=== PATIENT | male | born 1940 | race Caucasian/White ===

== ENCOUNTER 2022-04-08 09:15 | Inpatient (IN) | payer MEDICARE ==
[2022-04-08 11:44] VITALS: BMI 44.1
[2022-04-08 12:31] LABS: Hemoglobin 13.6 g/dL (13.5-17.5); INR-International Normal Ratio 1.2; Mean Corpuscular HGB CONC 32.5 g/dL (32.0-36.0); Mean Corpuscular Hemoglobin 32.2 pg (27.0-33.0); Mean Corpuscular Volume 98.8 fl (81.2-95.1); Mean Platelet Volume 9.9 fl (7.4-10.4); PTT 28.9 sec (22.0-33.0); Platelet Count 219 10x3/uL (150-450); Prothrombin Time 12.8 sec (9.5-12.1); RBC Distribution Width 13.1 % (11.5-14.5); Red Blood Cell (RBC) Count 4.23 10x6/uL (4.32-5.72)
[2022-04-08 12:45] LABS: Anion Gap 13 mmol/L (10-20); BUN (Urea Nitrogen) 18 mg/dL (8.4-25.7); Calc. Creatinine Clearance 0 mL/min (70-130); Calcium 8.7 mg/dL (7.8-10.44); Carbon Dioxide 29 mmol/L (23-31); Chloride 103 mmol/L (98-107); Glucose 97 mg/dL (83-110); Potassium 4.7 mmol/L (3.5-5.1); Sodium 140 mmol/L (136-145)
[2022-04-13] MEDS ORDERED: Lidocaine 1% MPF 2 ML VIAL ONE (10:12)
[2022-04-13] MEDS ORDERED: Sodium Chloride 0.9% 100 ML ONE (10:13)
[2022-04-13] MEDS ORDERED: CEFAZOLIN 2 GM VIAL ONE (10:13)
[2022-04-13] MEDS ORDERED: HYDROmorphone 0.5 MG/0.5 ML SYRINGE ONE (11:40)
[2022-04-13] MEDS ORDERED: Fentanyl 100 MCG/2 ML VIAL ONE ×2 (11:40→15:45)
[2022-04-13] MEDS ORDERED: Ketamine 50 MG/ML (10ML VIAL) ONE (11:52)
[2022-04-13] MEDS ORDERED: Bupivacaine PF 0.5% 30 ML VIAL ONE (11:53)
[2022-04-13] MEDS ORDERED: Lidocaine 1% w/Epinephrine 1:100K 30 ML VIAL ONE (11:53)
[2022-04-13] MEDS ORDERED: Dexamethasone 20 MG/5 ML VIAL ONE (11:59)
[2022-04-13] MEDS ORDERED: Rocuronium Bromide 10 MG/ML (10ML VIAL) ONE (11:59)
[2022-04-13] MEDS ORDERED: Ondansetron PF 4 MG/2 ML Vial ONE (11:59)
[2022-04-13] MEDS ORDERED: Lidocaine 1% PF 5 ML VIAL ONE (11:59)
[2022-04-13] MEDS ORDERED: Glycopyrrolate 0.2 MG/ML 5 ML SYRINGE ONE (11:59)
[2022-04-13] MEDS ORDERED: PROPOFOL 200 MG/20 ML VIAL ONE (11:59)
[2022-04-13] MEDS ORDERED: Succinylcholine 200 MG/10 ml SYRINGE FS ONE (11:59)
[2022-04-13] MEDS ORDERED: diphenhydrAMINE 50 MG/ML VIAL IVP PRN (13:25)
[2022-04-13] MEDS ORDERED: hydrALAZINE 20 MG/ML VIAL SLOW IVP PRN (13:25)
[2022-04-13] MEDS ORDERED: Zolpidem Tartrate 5 MG TAB PO PRN (13:25)
[2022-04-13] MEDS ORDERED: Morphine 4 MG/ML VIAL SLOW IVP PRN (13:25)
[2022-04-13] MEDS ORDERED: fentaNYL Citrate/PF 100 MCG/2 ML SYRINGE ONE (13:31)
[2022-04-13] MEDS ORDERED: SUGAMMADEX SODIUM 200 MG/2 ML VIAL ONE (13:41)
[2022-04-13] MEDS ORDERED: Ondansetron HCl/PF 4 MG/2 ML Vial IVP PRN (13:57)
[2022-04-13] MEDS ORDERED: Promethazine HCl 25 MG/ML VIAL IM PRN (13:57)
[2022-04-13] MEDS ORDERED: HYDROmorphone 2 MG/ML VIAL SLOW IVP PRN (13:57)
[2022-04-13] MEDS ORDERED: Promethazine HCl 25 MG/ML VIAL IVPB PRN (13:57)
[2022-04-13] MEDS: Heparin 5,000 UNITS/ML VIAL SC SCH ×2 (19:27→21:02)
[2022-04-13] MEDS: Ondansetron PF 4 MG/2 ML Vial IVP PRN (19:50)
[2022-04-13] MEDS: Amlodipine 5 MG TAB PO SCH (19:57)
[2022-04-13] MEDS: Sodium Chloride 0.9% 1,000 ML IV SCH (19:57)
[2022-04-13] MEDS ORDERED: Carvedilol 6.25 MG TAB PO SCH (20:00)
[2022-04-13] MEDS: Escitalopram Oxalate 10 mg Tablet PO SCH (20:06)
[2022-04-13] MEDS ORDERED: Dronedarone HCl 400 MG TAB PO SCH (21:00)
[2022-04-13] MEDS: Docusate 100 MG CAP PO SCH (21:03)
[2022-04-13] MEDS: Carvedilol 6.25 MG TAB PO SCH (22:10)
[2022-04-13] MEDS: HYDROcodone/Acetaminophen 5/325 mg Tablet PO PRN (22:21)
[2022-04-14] MEDS: HYDROcodone/Acetaminophen 5/325 mg Tablet PO PRN ×4 (05:10→21:57)
[2022-04-14] MEDS: Heparin 5,000 UNITS/ML VIAL SC SCH ×3 (05:10→21:57)
[2022-04-14] MEDS: Sodium Chloride 0.9% 1,000 ML IV SCH ×2 (06:30→17:11)
[2022-04-14] MEDS: Ondansetron PF 4 MG/2 ML Vial IVP PRN ×2 (06:34→13:52)
[2022-04-14 06:35] LABS: Anion Gap 12 mmol/L (10-20); BUN (Urea Nitrogen) 19 mg/dL (8.4-25.7); Calc. Creatinine Clearance 63 mL/min (70-130); Calcium 8.5 mg/dL (7.8-10.44); Carbon Dioxide 28 mmol/L (23-31); Chloride 102 mmol/L (98-107); Glucose 127 mg/dL (83-110); Potassium 4.5 mmol/L (3.5-5.1); Sodium 137 mmol/L (136-145)
[2022-04-14] MEDS ORDERED: Dronedarone HCl 400 MG TAB PO SCH ×2 (09:00→15:15)
[2022-04-14] MEDS ORDERED: Escitalopram Oxalate 10 mg Tablet PO SCH (09:00)
[2022-04-14] MEDS: Carvedilol 6.25 MG TAB PO SCH ×2 (09:01→17:11)
[2022-04-14] MEDS: Aspirin 81 mg Enteric Coated Tablet PO SCH (09:01)
[2022-04-14] MEDS: Docusate 100 MG CAP PO SCH ×2 (09:02→21:57)
[2022-04-14] MEDS ORDERED: Tamsulosin HCl 0.4 MG CAP PO SCH (12:15)
[2022-04-14] MEDS: Escitalopram Oxalate 10 mg Tablet PO SCH (21:56)
[2022-04-14] MEDS: Amlodipine 5 MG TAB PO SCH (21:56)
[2022-04-14] MEDS: Atorvastatin Calcium 20 MG TAB PO SCH (21:57)
[2022-04-14] MEDS: Dronedarone HCl 400 MG TAB PO SCH (21:57)
[2022-04-15] MEDS: Sodium Chloride 0.9% 1,000 ML IV SCH ×2 (02:31→04:29)
[2022-04-15] MEDS: Heparin 5,000 UNITS/ML VIAL SC SCH ×2 (06:09→15:01)
[2022-04-15] MEDS: HYDROcodone/Acetaminophen 5/325 mg Tablet PO PRN (06:13)
[2022-04-15] MEDS: Dronedarone HCl 400 MG TAB PO SCH ×2 (09:35→21:46)
[2022-04-15] MEDS: Docusate 100 MG CAP PO SCH ×2 (09:35→21:45)
[2022-04-15] MEDS: Tamsulosin HCl 0.4 MG CAP PO SCH (09:35)
[2022-04-15] MEDS: Aspirin 81 mg Enteric Coated Tablet PO SCH (09:36)
[2022-04-15] MEDS: Carvedilol 6.25 MG TAB PO SCH ×2 (09:36→17:19)
[2022-04-15] MEDS ORDERED: Furosemide 40 MG/4 ML VIAL SLOW IVP SCH (14:30)
[2022-04-15 16:20] LABS: #Eosinphils 0.1 thou/uL (0.0-0.7); #Lymphocytes 0.7 thou/uL (1.20-3.40); #Monocytes 1.3 thou/uL (0.11-0.59); %Basophils 0.2 % (0.0-1.0); %Eosinophils 1.2 % (0.0-10.0); %Lymphocytes 5.9 % (21.0-51.0); %Monocytes 11.5 % (0.0-10.0); %Neutrophils 81.2 % (42.0-75.0); Hemoglobin 13.4 g/dL (14.0-18.0); Mean Corpuscular HGB CONC 31.1 g/dL (32.0-36.0); Mean Corpuscular Hemoglobin 32.7 pg (27.0-31.0); Mean Platelet Volume 7.1 fL (7.4-10.4); Platelet Count 181 thou/uL (130-400); RBC Distribution Width 11.8 % (11.5-14.5); Red Blood Cell (RBC) Count 4.09 mill/uL (4.70-6.10)
[2022-04-15 16:31] LABS: ALT (SGPT) 21 U/L (8-55); AST (SGOT) 23 U/L (5-34); Albumin 3.3 g/dL (3.4-4.8); Alkaline Phosphatase 75 U/L (40-110); Anion Gap 11 mmol/L (10-20); BUN (Urea Nitrogen) 27 mg/dL (8.4-25.7); Bilirubin, Total 0.9 mg/dL (0.2-1.2); Calc. Creatinine Clearance 50 mL/min (70-130); Calcium 8.1 mg/dL (7.8-10.44); Carbon Dioxide 27 mmol/L (23-31); Chloride 96 mmol/L (98-107); Globulin 2.4 g/dL (2.4-3.5); Glucose 106 mg/dL (83-110); Potassium 4.7 mmol/L (3.5-5.1); Protein, Total 5.7 g/dL (5.8-8.1); Sodium 129 mmol/L (136-145)
[2022-04-15] MEDS ORDERED: Furosemide 20 MG/2 ML VIAL SLOW IVP PRN (18:23)
[2022-04-15] MEDS: Escitalopram Oxalate 10 mg Tablet PO SCH (21:44)
[2022-04-15] MEDS: Apixaban 2.5 MG TAB PO SCH (21:45)
[2022-04-15] MEDS: Amlodipine 5 MG TAB PO SCH (21:45)
[2022-04-15] MEDS: Atorvastatin Calcium 20 MG TAB PO SCH (21:48)
[2022-04-16 08:40] LABS: Anion Gap 12 mmol/L (10-20); BUN (Urea Nitrogen) 27 mg/dL (8.4-25.7); Calc. Creatinine Clearance 50 mL/min (70-130); Calcium 8.3 mg/dL (7.8-10.44); Carbon Dioxide 25 mmol/L (23-31); Chloride 97 mmol/L (98-107); Glucose 115 mg/dL (83-110); Potassium 4.5 mmol/L (3.5-5.1); Sodium 129 mmol/L (136-145)
[2022-04-16] MEDS: Aspirin 81 mg Enteric Coated Tablet PO SCH (08:42)
[2022-04-16] MEDS: Apixaban 2.5 MG TAB PO SCH (08:42)
[2022-04-16] MEDS: Tamsulosin HCl 0.4 MG CAP PO SCH (08:42)
[2022-04-16] MEDS: Docusate 100 MG CAP PO SCH (08:42)
[2022-04-16] MEDS: Carvedilol 6.25 MG TAB PO SCH ×2 (08:43→16:44)
[2022-04-16] MEDS: Dronedarone HCl 400 MG TAB PO SCH (08:44)
[2022-04-16] MEDS ORDERED: Polyethylene Glycol 3350 17 GM Packet PO PRN (09:52)
[2022-04-16 13:40] VITALS: TEMP 98.2
[2022-04-16] MEDS: HYDROcodone/Acetaminophen 5/325 mg Tablet PO PRN (16:28)
[2022-04-16 16:44] VITALS: BP 94/56
== END 2022-04-16 17:55 | disposition home or self-care (01) | DRG 656 ==
LOC: EDSTATUS 04-13 09:15 → SURG A 04-13 09:34 → SURG B 04-13 19:01
PROVIDERS: ADMIT Urology; ATTEND Hospitalist
PROC: 0TT00ZZ Resection of Right Kidney, Open Approach (ICD-10-PCS; principal; 2022-04-13)
PROC: 0TB60ZZ Excision of Right Ureter, Open Approach (ICD-10-PCS; 2022-04-13)
DX: C64.1 Malignant neoplasm of right kidney, except renal pelvis (principal); J96.01 Acute respiratory failure with hypoxia; Z68.41 Body mass index [BMI] 40.0-44.9, adult; I13.0 Hypertensive heart and chronic kidney disease with heart failure and stage 1 through stage 4 chronic kidney disease, or unspecified chronic kidney disease; N17.9 Acute kidney failure, unspecified; N18.4 Chronic kidney disease, stage 4 (severe); E66.01 Morbid (severe) obesity due to excess calories; R33.9 Retention of urine, unspecified; E78.00 Pure hypercholesterolemia, unspecified; E04.1 Nontoxic single thyroid nodule; Z96.653 Presence of artificial knee joint, bilateral; I25.10 Atherosclerotic heart disease of native coronary artery without angina pectoris; D63.1 Anemia in chronic kidney disease; E78.5 Hyperlipidemia, unspecified; I50.9 Heart failure, unspecified; I48.91 Unspecified atrial fibrillation; K21.9 Gastro-esophageal reflux disease without esophagitis; F32.A Depression, unspecified; Z82.49 Family history of ischemic heart disease and other diseases of the circulatory system; Z79.82 Long term (current) use of aspirin; Z79.899 Other long term (current) drug therapy; Z88.7 Allergy status to serum and vaccine; Z82.3 Family history of stroke
CPT/HCPCS: 36415; 71045; 80048; 80053; 83880; 85025; 85027; 85610; 85730; 86850; 86900; 86901; 88309; 93970; A4649; C1776; J0690; J1100; J1170; J1644; J1940; J2405; J2704; J3010; J3490; J7050; S0020; U0003; U0005

== ENCOUNTER 2022-04-08 09:42 | Outpatient (CLI) | payer MEDICARE | END 2022-04-08 09:43 | disposition home or self-care (01) | LOC: LABBT 09:42 | PROVIDERS: ATTEND Urology | DX: Z01.812 Encounter for preprocedural laboratory examination (principal); N28.89 Other specified disorders of kidney and ureter | CPT/HCPCS: 80048; 85027; 85610; 85730; 86850; 86900; 86901; U0003; U0005 ==

== ENCOUNTER 2022-04-22 13:07 | Inpatient (IN) | payer MEDICARE ==
[2022-04-22 14:40] LABS: #Eosinphils 0.1 thou/uL (0.0-0.7); #Lymphocytes 0.6 thou/uL (1.20-3.40); #Monocytes 1.3 thou/uL (0.11-0.59); #Neutrophils 13.7 thou/uL (1.40-6.50); %Basophils 0.2 % (0.0-1.0); %Eosinophils 0.6 % (0.0-10.0); %Lymphocytes 3.8 % (21.0-51.0); %Monocytes 8.3 % (0.0-10.0); %Neutrophils 87.1 % (42.0-75.0); Hemoglobin 13.3 g/dL (14.0-18.0); Mean Corpuscular HGB CONC 32.5 g/dL (32.0-36.0); Mean Corpuscular Hemoglobin 33.2 pg (27.0-31.0); Mean Platelet Volume 6.8 fL (7.4-10.4); Platelet Count 221 thou/uL (130-400); RBC Distribution Width 11.6 % (11.5-14.5); Red Blood Cell (RBC) Count 4.01 mill/uL (4.70-6.10); White Blood Cell (WBC) Count 15.7 thou/uL (4.8-10.8)
[2022-04-22 15:13] LABS: ALT (SGPT) 30 U/L (8-55); AST (SGOT) 24 U/L (5-34); Albumin 3.1 g/dL (3.4-4.8); Alkaline Phosphatase 96 U/L (40-110); Anion Gap 13 mmol/L (10-20); BUN (Urea Nitrogen) 21 mg/dL (8.4-25.7); Bilirubin, Total 1.8 mg/dL (0.2-1.2); Calc. Creatinine Clearance 0 mL/min (70-130); Calcium 8.3 mg/dL (7.8-10.44); Carbon Dioxide 28 mmol/L (23-31); Chloride 94 mmol/L (98-107); Globulin 2.6 g/dL (2.4-3.5); Glucose 110 mg/dL (83-110); Lipase 9 U/L (8-78); Potassium 4.2 mmol/L (3.5-5.1); Protein, Total 5.7 g/dL (5.8-8.1); Sodium 131 mmol/L (136-145)
[2022-04-22 17:29] LABS: Bacteria/HPF 2+ HPF (None Seen); Bilirubin Negative (Negative); Blood, Urine 1+ (Negative); Clarity Turbid (Clear); Glucose, Urine (Dipstick) Normal (Negative); Ketone, Urine Negative (Negative); Leukocyte 250 Leu/uL (Negative); Nitrite Negative (Negative); Protein, Urine (Dipstick) 50 mg/dL (Neg-Trace); RBC/HPF 0-3 HPF (0-3); Specific Gravity, Urine 1.015 (1.002-1.036); Squamous Epithelial 0-3 HPF (0-3); WBC/HPF Greater than 50 HPF (0-3); pH, Urine 6.5 (5.0-9.0)
[2022-04-22] MEDS ORDERED: Cefepime 2 GM VIAL ONE (18:14)
[2022-04-22 23:23] VITALS: BMI 42.9
[2022-04-23] MEDS ORDERED: Ondansetron ODT 4 MG TAB PO PRN (00:40)
[2022-04-23] MEDS ORDERED: Acetaminophen 325 MG TAB PO PRN (00:40)
[2022-04-23] MEDS ORDERED: Acetaminophen 650 MG Suppository PR PRN (00:40)
[2022-04-23] MEDS ORDERED: Ondansetron PF 4 MG/2 ML Vial IVP PRN (00:40)
[2022-04-23 02:59] LABS: #Eosinphils 0.4 thou/uL (0.0-0.7); #Lymphocytes 0.8 thou/uL (1.20-3.40); #Monocytes 1.4 thou/uL (0.11-0.59); #Neutrophils 12.4 thou/uL (1.40-6.50); %Basophils 0.2 % (0.0-1.0); %Eosinophils 2.7 % (0.0-10.0); %Lymphocytes 5.5 % (21.0-51.0); %Monocytes 9.5 % (0.0-10.0); Hemoglobin 12.8 g/dL (14.0-18.0); Mean Corpuscular HGB CONC 33.1 g/dL (32.0-36.0); Mean Corpuscular Hemoglobin 33.9 pg (27.0-31.0); Mean Platelet Volume 6.8 fL (7.4-10.4); Platelet Count 219 thou/uL (130-400); RBC Distribution Width 11.7 % (11.5-14.5); Red Blood Cell (RBC) Count 3.79 mill/uL (4.70-6.10); White Blood Cell (WBC) Count 15.1 thou/uL (4.8-10.8)
[2022-04-23 03:19] LABS: Anion Gap 12 mmol/L (10-20); BUN (Urea Nitrogen) 22 mg/dL (8.4-25.7); Calc. Creatinine Clearance 52 mL/min (70-130); Calcium 8.6 mg/dL (7.8-10.44); Carbon Dioxide 27 mmol/L (23-31); Chloride 97 mmol/L (98-107); Glucose 100 mg/dL (83-110); Sodium 132 mmol/L (136-145)
[2022-04-23] MEDS ORDERED: Furosemide 40 MG/4 ML VIAL SLOW IVP SCH (04:00)
[2022-04-23] MEDS: Cefepime 2 GM in Sodium Chloride 0.9% 100 ML IVPB SCH ×2 (05:08→17:26)
[2022-04-23] MEDS: Carvedilol 6.25 MG TAB PO SCH ×2 (08:19→17:43)
[2022-04-23] MEDS: Dronedarone HCl 400 MG TAB PO SCH ×2 (08:19→20:26)
[2022-04-24] MEDS: Cefepime 2 GM in Sodium Chloride 0.9% 100 ML IVPB SCH ×2 (05:14→17:21)
[2022-04-24 06:59] LABS: #Basophils 0.1 thou/uL (0.0-0.2); #Eosinphils 0.7 thou/uL (0.0-0.7); #Lymphocytes 0.7 thou/uL (1.20-3.40); #Neutrophils 7.3 thou/uL (1.40-6.50); %Basophils 0.5 % (0.0-1.0); %Eosinophils 6.7 % (0.0-10.0); %Monocytes 10.4 % (0.0-10.0); %Neutrophils 75.4 % (42.0-75.0); Hemoglobin 12.6 g/dL (14.0-18.0); Mean Corpuscular HGB CONC 32.2 g/dL (32.0-36.0); Mean Platelet Volume 6.9 fL (7.4-10.4); Platelet Count 246 thou/uL (130-400); RBC Distribution Width 11.6 % (11.5-14.5); Red Blood Cell (RBC) Count 3.82 mill/uL (4.70-6.10); White Blood Cell (WBC) Count 9.7 thou/uL (4.8-10.8)
[2022-04-24 07:23] LABS: Anion Gap 13 mmol/L (10-20); BUN (Urea Nitrogen) 25 mg/dL (8.4-25.7); Calc. Creatinine Clearance 51 mL/min (70-130); Calcium 8.3 mg/dL (7.8-10.44); Carbon Dioxide 28 mmol/L (23-31); Chloride 97 mmol/L (98-107); Glucose 96 mg/dL (83-110); Sodium 134 mmol/L (136-145)
[2022-04-24] MEDS: Furosemide 20 MG TAB PO SCH (08:17)
[2022-04-24] MEDS: Dronedarone HCl 400 MG TAB PO SCH ×2 (08:17→20:01)
[2022-04-24] MEDS: Carvedilol 6.25 MG TAB PO SCH ×2 (08:17→17:21)
[2022-04-25] MEDS: Cefepime 2 GM in Sodium Chloride 0.9% 100 ML IVPB SCH (05:21)
[2022-04-25] MEDS: Dronedarone HCl 400 MG TAB PO SCH (09:31)
[2022-04-25] MEDS: Carvedilol 6.25 MG TAB PO SCH (09:31)
[2022-04-25] MEDS: Furosemide 20 MG TAB PO SCH (09:31)
[2022-04-25 12:51] VITALS: BP 101/55; TEMP 98.1
== END 2022-04-25 15:20 | disposition home or self-care (01) | DRG 699 ==
LOC: ERS 13:07 → T4-A 21:24 → OBSVTOIN 04-25 12:53
PROVIDERS: ADMIT Internal Medicine; ATTEND Internal Medicine
DX: N99.89 Other postprocedural complications and disorders of genitourinary system (principal); N30.00 Acute cystitis without hematuria; I50.22 Chronic systolic (congestive) heart failure; I13.0 Hypertensive heart and chronic kidney disease with heart failure and stage 1 through stage 4 chronic kidney disease, or unspecified chronic kidney disease; N17.9 Acute kidney failure, unspecified; E87.1 Hypo-osmolality and hyponatremia; Z68.41 Body mass index [BMI] 40.0-44.9, adult; Y83.6 Removal of other organ (partial) (total) as the cause of abnormal reaction of the patient, or of later complication, without mention of misadventure at the time of the procedure; E78.5 Hyperlipidemia, unspecified; K22.70 Barrett's esophagus without dysplasia; Z96.659 Presence of unspecified artificial knee joint; N18.30 Chronic kidney disease, stage 3 unspecified; E66.01 Morbid (severe) obesity due to excess calories; I48.0 Paroxysmal atrial fibrillation; N18.32 Chronic kidney disease, stage 3b; E88.09 Other disorders of plasma-protein metabolism, not elsewhere classified; R80.9 Proteinuria, unspecified; Z79.01 Long term (current) use of anticoagulants; Z90.5 Acquired absence of kidney; Z88.7 Allergy status to serum and vaccine; Z79.899 Other long term (current) drug therapy; Z79.82 Long term (current) use of aspirin; Z98.890 Other specified postprocedural states; Z85.528 Personal history of other malignant neoplasm of kidney
CPT/HCPCS: 36415; 71045; 74176; 80048; 80053; 81003; 81015; 82306; 83605; 83690; 83880; 83970; 85025; 87040; 87086; 93970; 96365; 96375; 96376; G0378; J0692; J1940; J3490; U0003; U0005